=== PATIENT | female | born 1980 | race Caucasian/White ===

== ENCOUNTER 2018-01-11 14:14 | Inpatient (IN) | payer OTHER ==
[~2018-01-11] VITALS: Ht 157.5 cm; Wt 69.9 kg
[2018-01-11] MEDS ORDERED: OXYTOCIN/0.9 % SODIUM CHLORIDE 1,000 ML IV SCH (22:36)
[2018-01-11] MEDS ORDERED: TERBUTALINE SULFATE 1 MG/ML VIAL SUBCUT ONE (22:45)
[2018-01-11] MEDS ORDERED: DINOPROSTONE 10 MG SUPP VG ONE (22:45)
[2018-01-11] MEDS ORDERED: NALBUPHINE HCL 10 MG/ML AMP IVP PRN (22:45)
[2018-01-11 23:05] LABS: BASOPHILS % (AUTO) 0.2 % (0.0-2.0); EOSINOPHILS # (AUTO) 0.1 K/uL (0.0-0.4); EOSINOPHILS % (AUTO) 0.6 % (0.0-4.0); HEMATOCRIT 36.8 % (36-48); HEMOGLOBIN 12.7 g/dL (12.0-16.0); LYMPHOCYTES % (AUTO) 23.4 % (20.5-51.5); MEAN CORPUSCULAR HEMOGLOBIN 31 pg (27-31); MEAN CORPUSCULAR HGB CONC 35 % (32-36); MEAN CORPUSCULAR VOLUME 89 fL (79.0-98.0); MONOCYTES # (AUTO) 0.7 K/uL (0.0-1.0); MONOCYTES % (AUTO) 7.7 % (1.7-9.3); NEUTROPHILS # (AUTO) 5.9 K/uL (1.8-7.7); NEUTROPHILS % (AUTO) 68.1 % (40.0-70.0); PLATELET COUNT (AUTO) 102 K/uL (130-430); RED BLOOD CELL COUNT(AUTO) 4.13 MIL/uL (4.2-6.2); RED CELL DISTRIBUTION WIDTH 12.3 % (9.0-15.0); WHITE BLOOD COUNT (AUTO) 8.7 K/uL (4.8-10.8)
[2018-01-11] MEDS: LR 1,000 ML IV SCH (23:10)
[2018-01-11 23:16] LABS: BILIRUBIN,URINE NEGATIVE (NEGATIVE); BLOOD, URINE 1+ (NEGATIVE); COLOR,URINE YELLOW (YELLOW); GLUCOSE,URINE NEGATIVE (NEGATIVE); KETONES,URINE NEGATIVE (NEGATIVE); LEUKOCYTE ESTERASE ,URINE 1+ (NEGATIVE); NITRITE, URINE NEGATIVE (NEGATIVE); PH,URINE 5.5 (5.0-8.0); PROTEIN URINE TRACE (NEGATIVE); UROBILINOGEN,URINE 0.2 (0.2-1.0)
[2018-01-11 23:17] LABS: CLARITY/URINE SLIGHTLY CLOUDY (CLEAR)
[2018-01-11 23:18] LABS: BACTERIA,URINE MANY /HPF (None Seen); CALCIUM 8.9 mg/dL (8.4-11.0); CREATININE 0.99 mg/dL (0.55-1.30); POTASSIUM 4.1 mmol/L (3.5-5.1)
[2018-01-11 23:19] LABS: MUCUS,URINE None Seen /LPF (None Seen); URINE AMORPHOUS URATE 1+ /HPF (None Seen)
[2018-01-11 23:24] LABS: ALBUMIN 2.7 g/dL (3.4-4.8); TOTAL BILIRUBIN 0.2 mg/dL (0.0-1.0)
[2018-01-11 23:43] LABS: INR 0.9 (0.8-1.2); PROTHROMBIN TIME 9.3 SECS (9.5-12.5)
[2018-01-12 01:53] VITALS: BP_SYST 141
[2018-01-12] MEDS: LR 1,000 ML IV SCH ×3 (05:15→20:02)
[2018-01-13] MEDS: LR 1,000 ML IV SCH ×3 (03:45→19:32)
[2018-01-13] MEDS ORDERED: CEFAZOLIN 2 GM IVPB PREMIX 50 ML IV ONE (18:30)
[2018-01-13] MEDS ORDERED: fentaNYL CITRATE/PF 100 MCG/2 ML AMP IVP PRN ×2 (20:45)
[2018-01-13] MEDS ORDERED: ONDANSETRON HCL 4 MG/2 ML VIAL IVP PRN (20:45)
[2018-01-13] MEDS ORDERED: BUPIVACAINE LIPOSOME/PF 266 MG/20 ML VIAL INFIL ONE ×2 (20:56→21:15)
[2018-01-13] MEDS ORDERED: LR 1,000 ML IV SCH (20:59)
[2018-01-13] MEDS ORDERED: OXYTOCIN/0.9 % SODIUM CHLORIDE 1,000 ML IV ONE (20:59)
[2018-01-13] MEDS ORDERED: TEMAZEPAM 15 MG CAPSULE PO PRN (21:00)
[2018-01-13] MEDS ORDERED: RHO(D) IMMUNE GLOBULIN/MALTOSE 1500 UNITS/1.3 ML (WINHRO) IM PRN (21:00)
[2018-01-13] MEDS ORDERED: DIPH-TET-PERTUS Vaccine 0.5 ML VIAL (ADACEL) I.M. PRN (21:00)
[2018-01-13] MEDS ORDERED: HYDROcodone/ACETAMIN 5-325 MG TAB (NORCO/ VICODIN) PO PRN (21:00)
[2018-01-13] MEDS ORDERED: MEASLES,MUMPS&RUBELLA VACC/PF 12500 UNIT/0.5 ML VIAL SUBQ PRN (21:00)
[2018-01-13] MEDS ORDERED: BISACODYL 10 MG/SUPPOSITORY RC PRN (21:00)
[2018-01-13] MEDS ORDERED: LANOLIN 7 GM OINT. TP PRN (21:00)
[2018-01-13] MEDS ORDERED: BUPIVACAINE /PF 0.25% 30 ML VIAL INJ ONE (21:15)
[2018-01-13] MEDS ORDERED: NS IRRIG SOLN 1000 ML IR ONE (21:15)
[2018-01-13] MEDS ORDERED: DEXAMETHASONE SOD PHOSPHATE 4 MG/ML VIAL IVP ONE (21:15)
[2018-01-13] MEDS ORDERED: SUCCINYLCHOLINE CHLORIDE 20 MG/ML(QUELICIN) IVP ONE (21:15)
[2018-01-13] MEDS ORDERED: PROPOFOL 200MG/ 20ML VIAL (DIPRIVAN) IV ONE (21:15)
[2018-01-13] MEDS ORDERED: ONDANSETRON HCL 4 MG/2 ML VIAL IVP ONE (21:15)
[2018-01-13] MEDS ORDERED: LR 1,000 ML IV.SOLN IV ONE (21:15)
[2018-01-13] MEDS ORDERED: SEVOFLURANE 15 MIN GAS INH ONE (21:15)
[2018-01-13] MEDS ORDERED: MIDAZOLAM HCL 5 MG/ML VIAL (VERSED) IV ONE (21:15)
[2018-01-13] MEDS ORDERED: MEPERIDINE HCL/PF 50 MG/ML AMP IM ONE (21:15)
[2018-01-13] MEDS ORDERED: fentaNYL CITRATE/PF 100 MCG/2 ML AMP IVP ONE ×2 (21:20→21:40)
[2018-01-13 21:25] VITALS: BP_SYST 136
[2018-01-13] MEDS ORDERED: fentaNYL CITRATE/PF 100 MCG/2 ML AMP ONE (21:31)
[2018-01-13] MEDS: SIMETHICONE 80 MG TAB.CHEW PO PRN (23:36)
[2018-01-14] MEDS: CEFAZOLIN 1 GM IVPB PREMIX 50 ML IV SCH ×3 (00:30→11:59)
[2018-01-14] MEDS: OXYCODONE/ACETAMINOPHEN 5-325 TABLET PO PRN ×5 (02:58→21:35)
[2018-01-14 07:48] LABS: BASOPHILS % (AUTO) 0.1 % (0.0-2.0); HEMATOCRIT 30.2 % (36-48); HEMOGLOBIN 10.3 g/dL (12.0-16.0); LYMPHOCYTES # (AUTO) 1.1 K/uL (1.0-5.5); MEAN CORPUSCULAR HEMOGLOBIN 31 pg (27-31); MEAN CORPUSCULAR HGB CONC 34 % (32-36); MEAN CORPUSCULAR VOLUME 90 fL (79.0-98.0); MONOCYTES # (AUTO) 0.6 K/uL (0.0-1.0); NEUTROPHILS # (AUTO) 12.6 K/uL (1.8-7.7); NEUTROPHILS % (AUTO) 87.9 % (40.0-70.0); RED BLOOD CELL COUNT(AUTO) 3.35 MIL/uL (4.2-6.2); RED CELL DISTRIBUTION WIDTH 12.7 % (9.0-15.0); WHITE BLOOD COUNT (AUTO) 14.3 K/uL (4.8-10.8)
[2018-01-14] MEDS: DOCUSATE SODIUM 100 MG CAPSULE PO PRN (11:04)
[2018-01-14 11:57] LABS: PLATELET COUNT (AUTO) 61 K/uL (130-430)
[2018-01-14] MEDS: SENNOSIDES/DOCUSATE SODIUM 1 TAB TABLET(SENOKOT-S) PO PRN (21:34)
[2018-01-14] MEDS: SIMETHICONE 80 MG TAB.CHEW PO PRN (21:35)
[2018-01-15] MEDS: OXYCODONE/ACETAMINOPHEN 5-325 TABLET PO PRN ×6 (02:27→23:09)
[2018-01-15] MEDS: SIMETHICONE 80 MG TAB.CHEW PO PRN ×2 (06:51→23:10)
[2018-01-15] MEDS: DOCUSATE SODIUM 100 MG CAPSULE PO PRN ×2 (10:59→23:10)
[2018-01-15] MEDS: SENNOSIDES/DOCUSATE SODIUM 1 TAB TABLET(SENOKOT-S) PO PRN (18:46)
[2018-01-16] MEDS: OXYCODONE/ACETAMINOPHEN 5-325 TABLET PO PRN ×4 (03:06→15:30)
[2018-01-16] MEDS: DOCUSATE SODIUM 100 MG CAPSULE PO PRN (11:28)
[2018-01-16] MEDS: SENNOSIDES/DOCUSATE SODIUM 1 TAB TABLET(SENOKOT-S) PO PRN (15:29)
[2018-01-16 15:32] LABS: BASOPHILS % (AUTO) 0.1 % (0.0-2.0); EOSINOPHILS # (AUTO) 0.1 K/uL (0.0-0.4); EOSINOPHILS % (AUTO) 1.4 % (0.0-4.0); HEMATOCRIT 30.5 % (36-48); HEMOGLOBIN 10.4 g/dL (12.0-16.0); LYMPHOCYTES # (AUTO) 1.8 K/uL (1.0-5.5); LYMPHOCYTES % (AUTO) 17.6 % (20.5-51.5); MEAN CORPUSCULAR HEMOGLOBIN 31 pg (27-31); MEAN CORPUSCULAR HGB CONC 34 % (32-36); MEAN CORPUSCULAR VOLUME 92 fL (79.0-98.0); MONOCYTES # (AUTO) 0.5 K/uL (0.0-1.0); MONOCYTES % (AUTO) 4.7 % (1.7-9.3); NEUTROPHILS # (AUTO) 7.9 K/uL (1.8-7.7); NEUTROPHILS % (AUTO) 76.2 % (40.0-70.0); PLATELET COUNT (AUTO) 135 K/uL (130-430); RED BLOOD CELL COUNT(AUTO) 3.34 MIL/uL (4.2-6.2); RED CELL DISTRIBUTION WIDTH 12.9 % (9.0-15.0); WHITE BLOOD COUNT (AUTO) 10.3 K/uL (4.8-10.8)
[2018-01-16] MEDS ORDERED: IBUPROFEN 600 MG TABLET PO PRN (17:45)
[2018-01-16] MEDS ORDERED: IBUPROFEN 600 MG TABLET ONE (18:07)
[2018-01-17] MEDS: IBUPROFEN 600 MG TABLET PO SCH ×3 (06:11→12:45)
== END 2018-01-17 17:00 | disposition home or self-care (01) | DRG 765 ==
LOC: SPU 21:41
PROVIDERS: ADMIT Specialist; ATTEND Specialist
PROC: 10D00Z1 Extraction of Products of Conception, Low, Open Approach (ICD-10-PCS; principal; 2018-01-15)
DX: O13.4 Gestational [pregnancy-induced] hypertension without significant proteinuria, complicating childbirth (principal); O99.12 Other diseases of the blood and blood-forming organs and certain disorders involving the immune mechanism complicating childbirth; D69.6 Thrombocytopenia, unspecified; O24.429 Gestational diabetes mellitus in childbirth, unspecified control; O26.93 Pregnancy related conditions, unspecified, third trimester; O62.2 Other uterine inertia; Z3A.39 39 weeks gestation of pregnancy; Z37.0 Single live birth
CPT/HCPCS: 36415; 80053; 81000-TC; 82962; 85025; 85049-TC; 85379; 85384-TC; 85610-TC; 85730-TC; 86592; 86886; 86900; 86901; 87086; 88305; 94760; C9290; J0330; J0690; J1100; J2175; J2250; J2405; J2590; J2704; J3010; J3490; J7120

== ENCOUNTER 2022-05-24 11:56 | Outpatient (CLI) | payer OTHER ==
[2022-05-24] MEDS ORDERED: iohexoL 240 mgI/mL, 50 ML INFUS..BTL IV ONE (12:43)
[2022-05-24] MEDS ORDERED: LIDOCAINE 1%, 20 ML MDV 20 ML ONE (13:13)
== END 2022-05-24 16:00 | disposition home or self-care (01) ==
LOC: SRD 11:56
PROVIDERS: ATTEND Specialist
DX: N92.6 Irregular menstruation, unspecified (principal)
CPT/HCPCS: 74740; 58340; Q9966; J2001; C1751

== ENCOUNTER 2023-05-29 11:17 | Inpatient (IN) | payer OTHER ==
[~2023-05-29] VITALS: Ht 157.5 cm; Wt 71.2 kg
[2023-05-29] MEDS ORDERED: LR 1,000 ML IV ONE (11:30)
[2023-05-29] MEDS ORDERED: CEFAZOLIN 2 GM IVPB PREMIX 50 ML IV ONE (11:30)
[2023-05-29 12:00] LABS: BASOPHILS % (AUTO) 0.2 % (0.0-2.0); EOSINOPHILS % (AUTO) 0.2 % (0.0-4.0); HEMATOCRIT 43.3 % (36-48); HEMOGLOBIN 14.3 g/dL (12.0-16.0); LYMPHOCYTES # (AUTO) 1.5 K/uL (1.0-5.5); LYMPHOCYTES % (AUTO) 19.7 % (20.5-51.5); MEAN CORPUSCULAR HEMOGLOBIN 30 pg (27-31); MEAN CORPUSCULAR HGB CONC 33 % (32-36); MEAN CORPUSCULAR VOLUME 90 fL (79.0-98.0); MONOCYTES # (AUTO) 0.5 K/uL (0.0-1.0); MONOCYTES % (AUTO) 6.1 % (1.7-9.3); NEUTROPHILS # (AUTO) 5.8 K/uL (1.8-7.7); NEUTROPHILS % (AUTO) 73.8 % (40.0-70.0); PLATELET COUNT (AUTO) 130 K/uL (130-430); RED BLOOD CELL COUNT(AUTO) 4.84 MIL/uL (4.2-6.2); RED CELL DISTRIBUTION WIDTH 14.2 % (9.0-15.0); WHITE BLOOD COUNT (AUTO) 7.8 K/uL (4.8-10.8)
[2023-05-29 12:23] LABS: BILIRUBIN,URINE NEGATIVE (NEGATIVE); BLOOD, URINE NEGATIVE (NEGATIVE); CLARITY/URINE SLIGHTLY HAZY (CLEAR); COLOR,URINE YELLOW (YELLOW); GLUCOSE,URINE NEGATIVE (NEGATIVE); KETONES,URINE NEGATIVE (NEGATIVE); LEUKOCYTE ESTERASE ,URINE TRACE (NEGATIVE); NITRITE, URINE NEGATIVE (NEGATIVE); PROTEIN URINE NEGATIVE (NEGATIVE); UROBILINOGEN,URINE 0.2 (0.2-1.0)
[2023-05-29 12:33] LABS: BACTERIA,URINE FEW /HPF (None Seen); RBC,URINE 0-3 /HPF (0-3)
[2023-05-29 12:46] VITALS: BP_SYST 121; RESP 18; TEMP 99.3
[2023-05-29] MEDS ORDERED: BUPIVACAINE /DEX PF 0.75% SPINAL 2 ML AMP INJ ONE (14:14)
[2023-05-29] MEDS ORDERED: MORPHINE SULFATE 10MG/10ML PF AMP ONE (14:14)
[2023-05-29] MEDS ORDERED: ePHEDrine sulfate 50 MG/ML VIAL ONE (14:14)
[2023-05-29] MEDS ORDERED: LR 1,000 ML IV.SOLN IV ONE (14:14)
[2023-05-29] MEDS ORDERED: ONDANSETRON HCL 4 MG/2 ML VIAL ONE (14:14)
[2023-05-29] MEDS ORDERED: NS IRRIG SOLN 1000 ML IR ONE (14:14)
[2023-05-29] MEDS ORDERED: METOCLOPRAMIDE HCL 10 MG/2 ML VIAL ONE (14:14)
[2023-05-29] MEDS ORDERED: DIPHENHYDRAMINE INJ 50 MG/ML VIAL IM PRN (18:15)
[2023-05-29] MEDS ORDERED: NALOXONE HCL 0.4 MG/ML AMP (NARCAN) IVP PRN ×2 (18:15)
[2023-05-29] MEDS ORDERED: KETOROLAC TROMETHAMINE 60 MG/2 ML VIAL IM PRN (18:15)
[2023-05-29] MEDS ORDERED: ONDANSETRON HCL 4 MG/2 ML VIAL IVP PRN (18:15)
[2023-05-29] MEDS ORDERED: TEMAZEPAM 15 MG CAPSULE PO PRN (18:15)
[2023-05-29] MEDS ORDERED: RHO(D) IMMUNE GLOBULIN/MALTOSE 1500 UNITS/1.3 ML (WINHRO) IM PRN (18:15)
[2023-05-29] MEDS ORDERED: LANOLIN 7 GM OINT. TP PRN (18:15)
[2023-05-29] MEDS ORDERED: LR 1,000 ML IV SCH (18:15)
[2023-05-29] MEDS ORDERED: HYDROcodone/ACETAMIN 5-325 MG TAB (NORCO/ VICODIN) PO PRN (18:15)
[2023-05-29] MEDS ORDERED: ANUSOL 1 EA SUPP.RECT (PREPARATION H) RC PRN (18:15)
[2023-05-29] MEDS ORDERED: DIPHTH,PERTUSS(ACELL),TET VAC 0.5 ML VIAL (Tdap) I.M. PRN (18:15)
[2023-05-29] MEDS ORDERED: MEASLES,MUMPS&RUBELLA VACC/PF 12500 UNIT/0.5 ML VIAL SUBQ PRN (18:15)
[2023-05-29] MEDS ORDERED: BISACODYL 10 MG/SUPPOSITORY RC PRN (18:15)
[2023-05-29] MEDS ORDERED: MORPHINE SULFATE 10MG/10ML PF AMP SP SCH (18:15)
[2023-05-29] MEDS ORDERED: MEPERIDINE HCL/PF 25 MG/ML DISP.SYRIN IVP PRN (18:45)
[2023-05-29] MEDS ORDERED: MEPERIDINE HCL/PF 25 MG/ML DISP.SYRIN ONE (18:51)
[2023-05-29] MEDS: CEFAZOLIN 1 GM IVPB PREMIX 50 ML IV SCH (23:58)
[2023-05-30] MEDS: SIMETHICONE 80 MG TAB.CHEW PO PRN ×6 (01:06→21:45)
[2023-05-30] MEDS: OXYTOCIN/0.9 % SODIUM CHLORIDE 1,000 ML IV SCH ×2 (04:35→14:38)
[2023-05-30] MEDS: KETOROLAC TROMETHAMINE 30 MG VIAL IVP SCH ×2 (05:42→12:12)
[2023-05-30 06:52] LABS: BASOPHILS % (AUTO) 0.2 % (0.0-2.0); EOSINOPHILS % (AUTO) 0.1 % (0.0-4.0); HEMATOCRIT 35.2 % (36-48); HEMOGLOBIN 11.7 g/dL (12.0-16.0); LYMPHOCYTES # (AUTO) 1.4 K/uL (1.0-5.5); LYMPHOCYTES % (AUTO) 16.2 % (20.5-51.5); MEAN CORPUSCULAR HEMOGLOBIN 30 pg (27-31); MEAN CORPUSCULAR HGB CONC 33 % (32-36); MEAN CORPUSCULAR VOLUME 90 fL (79.0-98.0); MONOCYTES # (AUTO) 0.9 K/uL (0.0-1.0); MONOCYTES % (AUTO) 10.1 % (1.7-9.3); NEUTROPHILS # (AUTO) 6.6 K/uL (1.8-7.7); NEUTROPHILS % (AUTO) 73.4 % (40.0-70.0); PLATELET COUNT (AUTO) 113 K/uL (130-430); RED BLOOD CELL COUNT(AUTO) 3.92 MIL/uL (4.2-6.2); RED CELL DISTRIBUTION WIDTH 14.3 % (9.0-15.0); WHITE BLOOD COUNT (AUTO) 8.9 K/uL (4.8-10.8)
[2023-05-30] MEDS: DOCUSATE SODIUM 100 MG CAPSULE PO SCH ×2 (09:03→21:26)
[2023-05-30] MEDS: CEFAZOLIN 1 GM IVPB PREMIX 50 ML IV SCH (12:10)
[2023-05-30] MEDS: OXYCODONE/ACETAMINOPHEN 5-325 TABLET PO PRN ×2 (18:25→21:42)
[2023-05-30] MEDS: IBUPROFEN 600 MG TABLET PO SCH (18:31)
[2023-05-30 20:15] VITALS: BP_SYST 115; PULSE 65; RESP 18; TEMP 99
[2023-05-30] MEDS: SENNOSIDES/DOCUSATE SODIUM 1 TAB TABLET(SENOKOT-S) PO SCH (21:26)
[2023-05-31] MEDS: IBUPROFEN 600 MG TABLET PO SCH ×4 (00:05→18:06)
[2023-05-31] MEDS: OXYCODONE/ACETAMINOPHEN *10*mg/325 mg TABLET PO PRN ×3 (00:36→22:34)
[2023-05-31] MEDS: SIMETHICONE 80 MG TAB.CHEW PO PRN ×6 (00:37→21:15)
[2023-05-31] MEDS ORDERED: IBUPROFEN 600 MG TABLET PO SCH (06:00)
[2023-05-31] MEDS: DOCUSATE SODIUM 100 MG CAPSULE PO SCH ×2 (09:23→21:14)
[2023-05-31] MEDS: OXYCODONE/ACETAMINOPHEN 5-325 TABLET PO PRN ×3 (09:43→19:19)
[2023-05-31 20:30] VITALS: BP_SYST 111; PULSE 65; RESP 18; TEMP 99.1
[2023-05-31] MEDS: SENNOSIDES/DOCUSATE SODIUM 1 TAB TABLET(SENOKOT-S) PO SCH (21:15)
[2023-06-01] MEDS: IBUPROFEN 600 MG TABLET PO SCH ×4 (00:08→18:02)
[2023-06-01] MEDS: SIMETHICONE 80 MG TAB.CHEW PO PRN ×4 (00:09→15:52)
[2023-06-01] MEDS: OXYCODONE/ACETAMINOPHEN 5-325 TABLET PO PRN ×3 (06:01→15:52)
[2023-06-01 08:58] VITALS: BP_SYST 110; PULSE 62; RESP 18; TEMP 98.5
[2023-06-01] MEDS: DOCUSATE SODIUM 100 MG CAPSULE PO SCH (09:08)
[2023-06-01] MEDS ORDERED: PERC10 PO (11:44)
== END 2023-06-01 19:30 | disposition home or self-care (01) | DRG 787 ==
LOC: SPU 11:17
PROVIDERS: ADMIT Specialist; ATTEND Specialist
PROC: 10D00Z1 Extraction of Products of Conception, Low, Open Approach (ICD-10-PCS; principal; 2023-05-29 17:14)
DX: O34.211 Maternal care for low transverse scar from previous cesarean delivery (principal); O41.03X0 Oligohydramnios, third trimester, not applicable or unspecified; O99.12 Other diseases of the blood and blood-forming organs and certain disorders involving the immune mechanism complicating childbirth; O36.8130 Decreased fetal movements, third trimester, not applicable or unspecified; O76 Abnormality in fetal heart rate and rhythm complicating labor and delivery; D69.6 Thrombocytopenia, unspecified; Z3A.38 38 weeks gestation of pregnancy; Z37.0 Single live birth
CPT/HCPCS: 36415; 81000; 85025; 86592; 86886; 86900; 86901; J0690; J1885; J2175; J2274; J2405; J2590; J2765; J3490; J7120